=== PATIENT | female | born 1970 | race Caucasian/White ===

== ENCOUNTER 2020-07-16 07:56 | Outpatient (CLI) | payer OTHER | END 2020-07-16 08:13 | disposition home or self-care (01) | LOC: NUCLEAR 07:56 → EDBD 07:56 → NUCLEAR 08:13 | PROVIDERS: ATTEND Internal Medicine Cardiovascular Disease | DX: I20.8 Other forms of angina pectoris (principal) | CPT/HCPCS: 78452; 93017; A9500 ==

== ENCOUNTER 2021-03-02 12:15 | Inpatient (IN) | payer OTHER ==
[~2021-03-02] VITALS: Ht 165.1 cm; Wt 81.6 kg
[~2021-03-02 12:15] MED LIST: LEVOTHYROXINE25 MCG PO; TOPROL XL25 M1 PO
[2021-03-02] MEDS ORDERED: [UNRECOGNIZED DRUG - OTHER] PO (12:17)
[2021-03-02] MEDS ORDERED: ESTRO PO (12:17)
[2021-03-10] MEDS ORDERED: EEMT DS 1.25-21 EACH PO (08:54)
== END 2021-03-11 13:08 | disposition home or self-care (01) | DRG 330 ==
LOC: SURG 03-09 08:45 → O/R 03-09 09:16 → SURH 03-09 09:16 → SURG 03-09 12:15 → SURH 03-09 17:35
PROVIDERS: ADMIT Colon & Rectal Surgery; ATTEND Colon & Rectal Surgery
PROC: 0DTP4ZZ Resection of Rectum, Percutaneous Endoscopic Approach (ICD-10-PCS; 2021-03-09)
PROC: 4A12X4Z Monitoring of Cardiac Electrical Activity, External Approach (ICD-10-PCS; 2021-03-09)
PROC: 0DBN4ZZ Excision of Sigmoid Colon, Percutaneous Endoscopic Approach (ICD-10-PCS; principal; 2021-03-09 08:45)
DX: K57.32 Diverticulitis of large intestine without perforation or abscess without bleeding (principal); K92.1 Melena; K58.9 Irritable bowel syndrome, unspecified; E03.9 Hypothyroidism, unspecified; I10 Essential (primary) hypertension; E66.9 Obesity, unspecified